=== PATIENT | male | born 1955 | race Caucasian/White ===

== ENCOUNTER → 2024-08-11 06:56 | Outpatient (REF) | payer BC, SELFPAY | LOC: HWRCS 06:56 | PROVIDERS: ATTENDING PHYSICIAN Internal Medicine; FAMILY PHYSICIAN Family Medicine | DX: I35.1 Nonrheumatic aortic (valve) insufficiency (principal); I44.0 Atrioventricular block, first degree; I77.810 Thoracic aortic ectasia; I45.4 Nonspecific intraventricular block | CPT/HCPCS: 93306 ==

== ENCOUNTER → 2024-08-25 16:31 | Outpatient (REF) | payer BC, SELFPAY | LOC: RAD 16:31 | PROVIDERS: ATTENDING PHYSICIAN Internal Medicine; FAMILY PHYSICIAN Family Medicine | DX: I77.810 Thoracic aortic ectasia (principal) | CPT/HCPCS: 71275; Q9967 ==